=== PATIENT | female | born 1950 | race American Indian/Alaskan Native ===

== ENCOUNTER 2016-05-14 09:01 | Day surgery (SDC) | payer MEDICARE ==
--- NOTE | 2016-05-10 13:39 | Anesthesia Consultation ---
Anesthesia Consult and Med Hx Date of service: 05/10/16 - Airway Anesthetic Teeth Evaluation: Poor ROM Head & Neck: Adequate Mental/Hyoid Distance: Adequate Mallampati Class: Class II Intubation Access Assessment: Probably Good - Pulmonary Exam CTA: Yes - Cardiac Exam Cardiac Exam: RRR - Pre-Operative Health Status ASA Pre-Surgery Classification: ASA4 Proposed Anesthetic Plan: General - Pre-Anesthesia Comment Pre-Anesthesia Comments: No blood pressure on the right arm. ECHO 10/2013: normal EF. - Pulmonary Hx Smoking: Yes (former) Hx Asthma: Yes (BORDERLINE) - Cardiovascular System Hx Hypertension: Yes (CHF) - Central Nervous System Hx Neuromuscular Disorder: Yes (neuropathy) Hx Psychiatric Problems: Yes (depression) - Gastrointestinal Hx Gastroesophageal Reflux Disease: Yes (controlled) - Endocrine Hx Renal Disease: Yes (DIALYSIS MWF) Hx End Stage Renal Disease: Yes Hx Non-Insulin Dependent Diabetes: Yes (diet controlled) - Hematic Hx Anemia: Yes - Additional Comments Anesthesia Medical History Comments: NAC
--- NOTE | 2016-05-14 07:12 | Admit Criteria Form ---
Admission Criteria Documentation: AMBULATORY SURGERY EXCEPTION CRITERIA Ambulatory Surgery Exception Criteria ( Place 'X' for any and all applicable criteria): Surgery or procedure performed on ambulatory basis may require inpatient stay for[A] ANY ONE of the following(1)(2)(3)(4)(5)(6)(7)(8)(9): [X] I. A preoperative situation, condition, or finding that warrants inpatient stay as indicated by ANY ONE of the following: [] a) Inpatient care needed because of severity of a disease or condition rather than the surgery (eg, severe cardiac or respiratory disease, severe infection) (15) (16 ) (17) (18) [] b) Emergent procedure (eg, angioplasty for acute ischemia)(19) [] c) Complex surgical approach or situation as indicated by ANY ONE of the following(3): [] i) Open approach needed instead of usual endoscopic, transcatheter, or other less invasive procedure [] ii) Difficult approach because of previous operation [] iii) Airway monitoring required after open neck procedures(20)(21) [] iv) Large mass requiring unusually extensive dissection [] v) Additional complicating feature requiring inpatient care (eg, drain management)(22(23): [X] d) Major surgery in a pt with high anesthetic risk as indicated by ANY ONE of the following (2)(3)(5)(7)(8): [X] i) ASA risk class III or higher (severe systemic disease impairing function) [D] [] ii) Advanced age (eg, older than 85 years)(14)(24) [] iii) Symptomatic heart failure(25) [] iv) Symptomatic asthma or COPD(8)(21) [] v) Morbid obesity with hemodynamic or respiratory problems(20)( 21)(26)(27) [] vi) Obstructive sleep apnea(20)(21) [] vii) Former premature infants who are younger than 60 weeks [] viii) High risk for severe postoperative abnormalities (eg, severe postoperative hypocalcemia after parathyroidectomy for severe hyperparathyroidism)(27)( 28) [] ix) Unstable angina(25) [] e) Drug-related risk requiring inpatient stay as indicated by ANY ONE of the following(5)(10)(14)(32)(33) [] i) Procedure requires discontinuing drugs or other therapy (eg , antiarrhythmic medication, antiseizure medication), which necessitates inpatient observation or treatment.(18)(31) [] ii) Major surgery and high risk drug use as indicated by ANY ONE of the following: [] 1) Active abuse of cocaine or similar drug [] 2) Monoamine oxidase inhibitor use [] 3) Other drug identified as posing risk [] f) Inadequate outpatient care situation as indicated by ANY ONE of the following(5)(10)(14)(32)(33) [] i) Patient lives remote from medical facility and procedure has urgent complication potential, and temporary nearby residence cannot be arranged [] ii) Patient will have postprocedure incapacitation and inadequate assistance at home, or alternative level of care cannot be arranged. [] iii) Patient will have long general anesthesia or procedure side effect resolution time, and competent person to stay with patient on first postoperative night at home or alternative level of care cannot be arranged. []iv) Other inadequate outpatient situation that cannot be handled by other means [] II. A perioperative event, condition, or finding that warrants inpatient stay as indicated by ANY ONE of the following (1)(2)(3): [] a) Inadequate physiologic recovery: cardiovascular, respiratory, or hemodynamic status not normal or near preoperative baseline(18) [] b) Hemodynamic instability [] c) Patient not alert with near normal or baseline mental status [] d) Temperature not normal or as expected and not appropriate for outpatient treatment of condition [] e) Ambulatory or appropriate activity level status not yet achieved post procedure [E](34)(35)(36) [] f) Operative site not appropriate (eg, unexpected or excessive drainage or bleeding) [] g) Postoperative effects not resolved or adequately managed (eg, significant pain or vomiting not appropriate for outpatient or next level of care)(10)(12) [] h) Complicating features requiring inpatient care as indicated by ANY ONE of the following(37): [] i) Severe complications of procedure (eg, bowel injury, airway compromise, vascular injury,severe hemorrhage) [] ii) Extensive (eg, dissection far beyond usual scope of procedure ) or prolonged (eg, 120 minutes beyond usual) surgery needed requiring inpatient postoperative care [] iii) Conversion to an open or complex procedure that requires inpatient care (eg, open vs laparoscopic cholecystectomy, abdominal vs vaginal hysterectomy)(38) [] iv) Comorbid condition or test result identified during or post procedure that requires inpatient care (7) [] v) Malignant hyperthermia(30) [] vi) Other complicating feature requiring inpatient care(22)(23) Inpatient stay may be needed until ALL of the following are present (1)(2)(3)(4) (5)(6)(10)(14)(33)(40): []a) Physiologic recovery: cardiovascular, respiratory, and hemodynamic status normal or near preoperative baseline []b) Hemodynamic stability []c) Patient alert, with near normal or baseline mental status []d) Temperature appropriate: patient afebrile or temperature appropriate for outpt treatment of condition []e) Activity level appropriate: ambulatory or appropriate activity level post procedure []f) Operative site appropriate as indicated by ALL of the following: []i) Site dry or with expected drainage []ii) Any blood noted is as expected for procedure. []g) Postoperative effects resolved or managed as indicated by ALL of the following: []i) Pain management appropriate for outpatient (or next level of) care(10) []ii) Minimal nausea and vomiting: if present, successfully treated with oral medication(12) []iii) Headache, dizziness, or drowsiness (if present) are mild. []h) Voiding status acceptable as indicated by ANY ONE of the following: []i) Voiding spontaneously []ii) No voiding but instructions given for follow-up in 6 to 8 hours []iii) Urinary catheter in place, and instructions given for follow-up []i) Complicating features requiring inpatient care manageable at a lower level of care(37) []j) Comorbid conditions manageable at a lower level of care(37) The original [employer] content created by [employer] has been revised. The portions of the content which have been revised are identified through the use of italic text or in bold, and [employer] has neither reviewed nor approved the modified material. All other unmodified content is copyright [employer]. Please see references footnoted in the original [employer] edition 2016
[2016-05-14] MEDS ORDERED: DIPRIVAN 10 MG/ML IV ONE ×2 (10:37→12:08)
[2016-05-14] MEDS ORDERED: XYLOCAINE MPF 2% ONE ×2 (10:38→12:30)
[2016-05-14] MEDS ORDERED: DILAUDID ONE (10:38)
[2016-05-14] MEDS ORDERED: NACL BACTERIOSTATIC INFILTRATI ONE (10:40)
[2016-05-14] MEDS ORDERED: ZOFRAN IV PRN (10:49)
[2016-05-14] MEDS ORDERED: MORPHINE IV PRN (10:49)
--- NOTE | 2016-05-14 10:49 | Anesthesia Day of Surgery ---
Anesthesia Day of Surgery - Day of Surgery Patient Examined: Yes Patient H&P Reviewed: Yes Patient is NPO: Yes Beta Blockers: Yes
[2016-05-14] MEDS ORDERED: NACL 0.9% 1000 ML 1,000 ML IV SCH (11:00)
[2016-05-14] MEDS ORDERED: REGLAN PO NR (11:00)
[2016-05-14] MEDS ORDERED: VERSED IV NR (11:00)
[2016-05-14] MEDS ORDERED: PEPCID PO NR (11:00)
[2016-05-14] MEDS ORDERED: ANCEF/STERILE WATER 2 GM/20 ML IV NR (12:00)
[2016-05-14] MEDS ORDERED: LEVAQUIN 500MG/100ML 100 ML IV NR (12:00)
[2016-05-14] MEDS ORDERED: LEVAQUIN 250MG/50ML 250 MG/50 ML BAG IV NR (12:00)
[2016-05-14] MEDS ORDERED: XYLOCAINE 2% UROJET UR ONE (12:10)
[2016-05-14] MEDS ORDERED: WATER FOR IRRIG STERILE IR ONE (12:10)
--- NOTE | 2016-05-14 12:37 | Post Operative Note ---
Pre-op diagnosis: hematuria Post-op diagnosis: same Findings: contracted bladder L uvj stone Procedure: cysto uretral dil .. stenosis cystogram stone ext Anesthesia: TERRELL IZAGUIRRE Surgeon: SAMEER ESTEBAN Estimated blood loss: minimal Pathology: list (stone) Specimen disposition: given to patient/family Condition: stable Disposition: PACU
--- NOTE | 2016-05-14 12:38 | Discharge Summary ---
Short Stay Discharge Plan Activity: other (no straining ) Weight Bearing Status: Partial Weight Bearing Diet: low cholesterol, low salt Special Instructions: other (fluids per nephrology ) Durable Medical Equipment Needed Upon Discharge: other (remove pack before sending to phase 2 ) Follow up with: PRIMARY CARE, [Primary Care Provider] - 7 Days SAMEER ESTEBAN MD [Staff Physician] - 14 Days
--- NOTE | 2016-05-14 13:21 | Post Anesthesia Evaluation ---
- Post Anesthesia Evaluation Patient Participated: Yes Airway Patent: Yes Stable Respiratory Function: Yes Nausea/Vomiting: No Temp > 96.8F: Yes Pain Manageable: Yes Adequeate Hydration: Yes Anesthesia Complications: No Block Receding Appropriately: Not Applicable Patient on Ventilator: No
--- NOTE | 2016-05-14 13:42 | Fluoroscopy Report ---
Retrograde pyelogram: The marketing account manager film demonstrates some scattered phlebolithic calcifications in the pelvis. Injection of contrast demonstrates that the ureter overlies what appears to be one of the phleboliths. Ureteral findings are not otherwise remarkable and the intrarenal collecting system is not included on the images. An AP view of the bladder is also present demonstrating a small diverticulum on the right side. The bladder is not well distended and there is a De La Garza balloon noted centrally. No other findings noted.
--- NOTE | 2016-05-14 13:45 | Fluoroscopy Report ---
Retrograde pyelogram and cystogram: The director of field sales film demonstrates some scattered phlebolithic calcifications in the pelvis. Injection of contrast demonstrates that the ureter overlies what appears to be one of the phleboliths. Ureteral findings are not otherwise remarkable and the intrarenal collecting system is not included on the images. An AP view of the bladder is also present demonstrating a small diverticulum on the right side. The bladder is not well distended and there is a De La Garza balloon noted centrally. No other findings noted.
[2016-05-14 14:47] VITALS: BP 103/53
--- NOTE | 2016-05-14 19:15 | Operative Report ---
PREOPERATIVE DIAGNOSIS: Hematuria. POSTOPERATIVE DIAGNOSES: Urethral meatal stenosis, very contracted bladder with likely chronic interstitial cystitis and a stone at the left ureteral orifice. PROCEDURE: Cystoscopy with urethral dilatation, cystogram, extraction of stone at the left orifice with retrograde. SURGEON: Fredy Orozco MD ANESTHESIA: First with MAC then general. FINDINGS: This is a woman with renal failure, on dialysis. She presents with hematuria. All the options were discussed. The increased risks are her renal failure and dialysis. DESCRIPTION OF PROCEDURE: The patient was brought to the operating room and placed on the operating table. Following induction of mild sedation, placed in lithotomy position, prepped and draped in usual sterile fashion. We used the Uro-Jet and could not get the scope initially in the urethra. We had to dilate it to 24 Kenyan. It was very tight at the bladder neck. The bladder neck was then opened and there were no lesions in the urethra. Immediately on entering the bladder, you can see a black, looked almost like the orifice, was dilated, but then it seemed to be a stone at the orifice. Retrograde showed nondilated system with the stone there. The bladder was moderately erythematous and would only accommodate approximately 90 mL without having some bleeding. Small biopsy was obtained of the bladder and cauterized. The stone was grasped with a 5-Kenyan 3-prong grasper and extracted. We did not need a stent. She is anuric. We did not want to disturb the right side. The patient tolerated the procedure well. The bladder was very friable. Brought to recovery room. Family notified. We left the De La Garza that will be removed in the recovery room before going to phase 2. She was brought to recovery in stable condition. JOB# [id number] ZEYNEP/YURIY
== END 2016-05-14 14:44 | disposition home or self-care (01) ==
LOC: OR 09:01
PROVIDERS: ATTEND Urology
DX: N35.8 Other urethral stricture (principal); N32.89 Other specified disorders of bladder; N20.1 Calculus of ureter; N32.0 Bladder-neck obstruction; F32.9 Major depressive disorder, single episode, unspecified; D64.9 Anemia, unspecified; K21.9 Gastro-esophageal reflux disease without esophagitis; I13.2 Hypertensive heart and chronic kidney disease with heart failure and with stage 5 chronic kidney disease, or end stage renal disease; E11.22 Type 2 diabetes mellitus with diabetic chronic kidney disease; N18.6 End stage renal disease; I50.9 Heart failure, unspecified; Z99.2 Dependence on renal dialysis; Z87.891 Personal history of nicotine dependence
CPT/HCPCS: 36415; 52204; 52320; 74420; 82962; 84132; 88305; A4217; C1758; J1170; J1956; J2250; J2270; J2704; J7030; Q9967; 74430

== ENCOUNTER 2016-09-24 10:44 | Outpatient (CLI) | payer MEDICARE ==
--- NOTE | 2016-09-24 13:26 | Ultrasound Report ---
ULTRASOUND PELVIC COMPLETE ULTRASOUND TRANSVAGINAL HISTORY: Vaginal mass. TECHNIQUE: Transabdominal and transvaginal ultrasound with color doppler interrogation. Findings: Correlation is made with a noncontrast CT abdomen pelvis without contrast performed 01/25/16. Hysterectomy changes are evident. The ovaries are not visualized on ultrasound. I believe I see the ovaries on the previous CAT scan. The ovaries are grossly unremarkable on the previous exam. There is an angular hypoechoic structure to the right of the vaginal cuff which the technologist has measured. The structure measures 4.7 x 1.7 x 2.1 cm. There is trace internal perfusion on spectral Doppler interrogation. The etiology of this is unclear. This may represent the right ovary. No pelvic fluid collection. IMPRESSION: Hysterectomy. There is an indeterminate hypoechoic structure to the right of the vaginal cuff as outlined above. I'm not entirely convinced a vaginal mass is demonstrated on this study or the previous noncontrast CT abdomen and pelvis. If vaginal mass is highly suspected, CT pelvis with IV contrast is recommended.
== END 2016-09-24 10:45 | disposition home or self-care (01) ==
LOC: US 10:44
PROVIDERS: ATTEND Urology
DX: N89.8 Other specified noninflammatory disorders of vagina (principal); Z90.710 Acquired absence of both cervix and uterus
CPT/HCPCS: 76830; 76856

== ENCOUNTER 2016-10-03 15:09 | Outpatient (CLI) | payer MEDICARE ==
--- NOTE | 2016-10-04 13:48 | Magnetic Resonance Report ---
MR PELVIS WITHOUT CONTRAST HISTORY: Vaginal mass. TECHNIQUE: Multisequence, multiplanar MRI without IV gadolinium. FINDINGS: CT abdomen and pelvis performed 01/25/16 and pelvic ultrasounds performed 09/24/16 were reviewed. In my opinion, no vaginal mass is appreciated on ultrasound, CT or MRI. There is been previous hysterectomy. The vaginal cuff appears normal. I believe I see the bilateral ovaries on both MR and CT which have an unremarkable appearance. No adnexal cyst or mass. The vaginal canal is poorly imaged on this exam but again no obvious mass is detected. The urethra and rectum are unremarkable. The remaining pelvic viscera are within normal limits. No evidence for adenopathy, inflammation or ascites. There are mild marrow replacement changes in the pelvic bones but no evidence for fracture or bony lesion. IMPRESSION: No vaginal mass is detected. Please see above.
== END 2016-10-03 15:10 | disposition home or self-care (01) ==
LOC: MRI 15:09
PROVIDERS: ATTEND Urology
DX: N89.8 Other specified noninflammatory disorders of vagina (principal); Z90.710 Acquired absence of both cervix and uterus; Z98.890 Other specified postprocedural states; I13.2 Hypertensive heart and chronic kidney disease with heart failure and with stage 5 chronic kidney disease, or end stage renal disease; I50.9 Heart failure, unspecified; N18.6 End stage renal disease; J45.909 Unspecified asthma, uncomplicated; Z87.891 Personal history of nicotine dependence
CPT/HCPCS: 72195

== ENCOUNTER 2016-11-12 09:06 | Outpatient (CLI) | payer MEDICARE ==
--- NOTE | 2016-11-12 11:30 | Mammography Report ---
BILATERAL MAMMOGRAM with CAD: HISTORY: Cancer screening. No comparison studies are available. FINDINGS: There are scattered fibroglandular densities (approximately 25%-50% glandular). No mass, distortion, suspicious calcification, or skin change is seen. Scattered benign calcifications are noted. A single biopsy clip is present in the left medial breast. IMPRESSION: Negative mammogram. There is no mammographic evidence of malignancy. RECOMMENDATION: Follow-up per ACS guidelines. BI-RADS CATEGORY: 1 = Negative ACR BI-RADS MAMMOGRAPHIC CODES: 0 = Needs additional imaging evaluation; 1 = Negative; 2 = Benign; 3 = Probably benign; 4 = Suspicious; 5 = Malignant; 6 = Known biopsy-proven malignancy COMMENT: 1. Dense breast tissue, i.e., adenosis, fibrocystic changes, etc., may obscure an underlying neoplasm. 2. Approximately 10% of cancers are not detected with mammography. 3. A negative mammography report should not delay biopsy if a clinically suspicious mass is present. COMMENT: Patient follow-up letters are generated in [employer].
== END 2016-11-12 09:07 | disposition home or self-care (01) ==
LOC: MAMMO 09:06
PROVIDERS: ATTEND Internal Medicine Nephrology
DX: Z12.31 Encounter for screening mammogram for malignant neoplasm of breast (principal); I13.0 Hypertensive heart and chronic kidney disease with heart failure and stage 1 through stage 4 chronic kidney disease, or unspecified chronic kidney disease; I50.9 Heart failure, unspecified; N18.6 End stage renal disease; D63.1 Anemia in chronic kidney disease; J45.909 Unspecified asthma, uncomplicated; Z87.891 Personal history of nicotine dependence
CPT/HCPCS: 77067; G0202

== ENCOUNTER 2018-01-06 09:46 | Outpatient (CLI) | payer MEDICARE ==
--- NOTE | 2018-01-07 08:17 | Mammography Report ---
BILATERAL DIGITAL SCREENING MAMMOGRAM with CAD: 01/06/18 09:46:00 CLINICAL: Routine screening. COMPARISON:11/12/16 FINDINGS: There are scattered areas of fibroglandular density.Stable left inner benign scar with a biopsy clip. No mass, architectural distortion or suspicious calcifications. IMPRESSION: No mammographic evidence of malignancy. BI-RADS CATEGORY: 2 -- Benign RECOMMENDATION: Routine mammographic screening in one year. COMMENT: Patient follow-up letters are generated by our [employer] application.
== END 2018-01-06 09:47 | disposition home or self-care (01) ==
LOC: MAMMO 09:46
PROVIDERS: ATTEND Internal Medicine Nephrology
DX: Z12.31 Encounter for screening mammogram for malignant neoplasm of breast (principal); I13.2 Hypertensive heart and chronic kidney disease with heart failure and with stage 5 chronic kidney disease, or end stage renal disease; N18.6 End stage renal disease; I50.9 Heart failure, unspecified; E78.00 Pure hypercholesterolemia, unspecified; J45.909 Unspecified asthma, uncomplicated; K21.9 Gastro-esophageal reflux disease without esophagitis; Z90.710 Acquired absence of both cervix and uterus; Z87.891 Personal history of nicotine dependence; Z90.12 Acquired absence of left breast and nipple
CPT/HCPCS: 77067

== ENCOUNTER 2019-02-01 10:10 | Outpatient (CLI) | payer MEDICARE ==
--- NOTE | 2019-02-02 13:32 | Mammography Report ---
DIGITAL SCREENING MAMMOGRAM WITH CAD, 02/01/2019 INDICATION: Routine screening mammography. TECHNIQUE: Digital bilateral 2D mammography was obtained in the craniocaudal and mediolateral obliq ue projections. This examination was interpreted with the benefit of Computer-Aided Detection analysi s. COMPARISON: 01/06/2018 and 11/12/2016 FINDINGS: Breast Density: The breasts are heterogeneously dense, which may obscure small masses. A right asymmetry on the MLO view requires additional imaging. No architectural distortion or suspici ous calcifications of the right breast. Bilateral benign calcifications. There is no evidence of jorge nant mass, suspicious calcifications or architectural distortion in the left breast. A left lower inn er biopsy clip and a stable asymmetric density at the clip. IMPRESSION: Right asymmetry requiring additional imaging. Recommend recall for right lateral and MLO and CC spot compression views and right breast ultrasound if needed. Follow up recommendation: Routine yearly A "normal" or negative report should not discourage follow up or biopsy of a clinically significant f inding. A written summary of these findings will be mailed to the patient. The patient will be entered into a mammography reporting system which will generate a reminder letter for the patient's next appointmen t at the appropriate interval. The [employer] recommends yearly mammograms starting at age 40 and continuing as l jumana as a woman is in good health. Breast MRI is recommended for women with an approximate 20-25% or greater lifetime risk of breast cancer, including women with a strong family history of breast or ova jewels cancer or who have been treated for Hodgkin's disease. Signer Name: Stan Gamez MD Signed: 02/02/2019 1:27 PM Workstation Name: [id number]
== END 2019-02-01 10:11 | disposition home or self-care (01) ==
LOC: MAMMO 10:10
PROVIDERS: ATTEND Internal Medicine Nephrology
DX: Z12.31 Encounter for screening mammogram for malignant neoplasm of breast (principal); I13.0 Hypertensive heart and chronic kidney disease with heart failure and stage 1 through stage 4 chronic kidney disease, or unspecified chronic kidney disease; I50.9 Heart failure, unspecified; E11.22 Type 2 diabetes mellitus with diabetic chronic kidney disease; N18.6 End stage renal disease
CPT/HCPCS: 77067

== ENCOUNTER 2019-03-19 09:39 | Outpatient (CLI) | payer MEDICARE ==
--- NOTE | 2019-03-19 18:46 | Ultrasound Report ---
RIGHT DIGITAL DIAGNOSTIC MAMMOGRAM WITH CAD 03/19/2019 RIGHT LIMITED BREAST ULTRASOUND INDICATION: ABNORMAL AND INCONCLUSIVE MAMMOGRAM TECHNIQUE: Digital right mammographic imaging was performed. Spot compression views were obtained. L imited ultrasound was performed. This examination was interpreted with the benefit of Computer-Aided Detection (CAD) analysis. COMPARISON: Screening mammograms 02/01/2019 and prior Breast Density: The breasts are heterogeneously dense, which may obscure small masses. FINDINGS: MAMMOGRAPHIC FINDINGS: Area in question resolves with additional views. ULTRASOUND FINDINGS: Targeted ultrasound evaluation was performed of the area of interest. Multiple s olid-appearing nodules are seen scattered in several regions of the right breast on ultrasound. In th e 1:00 position 6 cm from the nipple an ovoid solid wider than tall well-defined benign-appearing nod ule is seen measuring 15 mm in length and 5 mm in thickness. No shadowing is seen. Vascularity was no t assessed. In the 12:00 position, 7 cm from the nipple a small moderately well-defined hypoechoic no dule is seen measuring only 4 mm without shadowing. Possibly this just represents an extension of a b reast lobule. In the 3:00 position, 3 cm from the nipple, a superficial ovoid benign-appearing well-d efined hypoechoic solid nodule is seen measuring 12 mm in length and is adjacent to the skin surface but does not clearly penetrate the skin surface. No shadowing is seen. In the 11:00 position, 8 cm fr om the nipple, a possible ovoid nodule is seen measuring 12 mm in length and 4 mm in thickness withou t shadowing or vascularity. This may also just represent a lobule of breast tissue rather than a true nodule. In the 9:00 position, 6 cm from the nipple, a benign-appearing ovoid solid nodule is seen me asuring 11 mm in length and 6 mm in thickness. No vascularity is seen. No shadowing is noted. IMPRESSION: 1. The area of concern mammographically appears to resolve with additional mammographic views 2. Ultrasound detects multiple benign-appearing nodules and possible nodules though some of these may just represent prominent lobules of breast tissue. Follow up recommendation: Follow-up right breast ultrasound in 6 months BI-RADS Category 3: Probably Benign. Followup in 6 months. A "normal" or negative report should not discourage follow up or biopsy of a clinically significant f inding. A written summary of these findings will be mailed to the patient. The patient will be entered into a mammography reporting system which will generate a reminder letter for the patient's next appointmen t at the appropriate interval. According to the [employer], yearly mammograms are recommended starting at age 40 and continuing as long as a woman is in good health. Breast MRI is recommended for women with an rad roximately 20-25% or greater lifetime risk of breast cancer, including women with a strong family his tory of breast or ovarian cancer and women who have been treated for Hodgkin's disease. Signer Name: Piero Yarbrough MD Signed: 03/19/2019 6:41 PM Workstation Name: [id number]
== END 2019-03-19 09:40 | disposition home or self-care (01) ==
LOC: MAMMO 09:39
PROVIDERS: ATTEND Internal Medicine Nephrology
DX: R92.8 Other abnormal and inconclusive findings on diagnostic imaging of breast (principal); E11.22 Type 2 diabetes mellitus with diabetic chronic kidney disease; I12.0 Hypertensive chronic kidney disease with stage 5 chronic kidney disease or end stage renal disease; N25.81 Secondary hyperparathyroidism of renal origin; N18.6 End stage renal disease; D63.1 Anemia in chronic kidney disease